=== PATIENT | female | born 2000 | race Caucasian/White ===

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

== ENCOUNTER 2019-03-02 21:52 | Emergency (ER) | payer OTHER ==
[2019-03-02 22:00] VITALS: BP 111/54
[2019-03-02] MEDS ORDERED: Ondansetron ODT TAB* 4 MG PO ONE ×2 (22:06→22:13)
[2019-03-02] MEDS ORDERED: Azithromycin TAB* 250 MG PO ONE (22:13)
--- NOTE | 2019-03-02 22:16 | UC ---
Throat Pain/Nasal Isaías HPI - HPI Summary HPI Summary: PATIENT WENT TO [facility] 10 DAYS AGO ON 02/20/19. WAS TREATED FOR STREP THROAT WITH AMOXICILLIN 500 MG ONCE DAILY FOR 7 DAYS. STATES SHE FELT BETTER BUT THEN YESTERDAY SYMPTOMS RETURNED. PATIENT HAS SUBJECTIVE FEVER, CHILLS, NAUSEA/VOMITING, SORE THROAT AND PAIN WITH SWALLOWING. - History of Current Complaint Chief Complaint: UCRespiratory Stated Complaint: sore throat Time Seen by Provider: 03/02/19 21:53 Hx Obtained From: Patient Hx Last Menstrual Period: 02/26/19 Onset/Duration: Gradual Onset, Lasting Days, Still Present Severity: Moderate Pain Intensity: 5 Pain Scale Used: 0-10 Numeric Cough: None Associated Signs & Symptoms: Positive: Fever - Allergies/Home Medications Allergies/Adverse Reactions: Allergies Allergy/AdvReac Type Severity Reaction Status Date / Time No Known Allergies Allergy Verified 03/02/19 22:00 Home Medications: Home Medications Dextroamphetamine/Amphetamine [Adderall 10 mg-] 10 mg PO DAILY 03/02/19 [ History Confirmed 03/02/19] PMH/Surg Hx/FS Hx/Imm Hx Psychological History: Anxiety, Depression - Surgical History Surgical History: None - Family History Known Family History: Positive: None - Social History Alcohol Use: Rare Substance Use Type: None Smoking Status (MU): Never Smoked Tobacco Review of Systems All Other Systems Reviewed And Are Negative: Yes Constitutional: Positive: Fever, Chills, Fatigue ENT: Positive: Sore Throat Respiratory: Positive: Negative Cardiovascular: Positive: Negative Gastrointestinal: Positive: Vomiting, Nausea Physical Exam Triage Information Reviewed: Yes Appearance: Well-Appearing, No Pain Distress, Well-Nourished Vital Signs: Initial Vital Signs Temp 97.9 F 03/02/19 21:55 Pulse 106 03/02/19 21:55 Resp 16 03/02/19 21:55 BP 111/54 03/02/19 21:55 Pulse Ox 100 03/02/19 21:55 Laboratory Tests 03/02/19 21:58 Group A Strep Rapid Positive A Eyes: Positive: Conjunctiva Clear ENT: Positive: Hearing grossly normal, Pharyngeal erythema, TMs normal, Tonsillar swelling, Tonsillar exudate Neck: Positive: Supple, Tenderness @ - SPFL CERVICAL LAD, Enlarged Nodes @ - SPFL CERVICAL LAD Respiratory Exam: Normal Cardiovascular: Positive: Tachycardia Abdomen Description: Positive: Soft Musculoskeletal: Positive: No Edema Neurological: Positive: Alert Psychological: Positive: Age Appropriate Behavior Skin: Negative: Rashes Throat Pain/Nasal Course/Dx - Course Course Of Treatment: IT SOUNDS LIKE PATIENT WAS UNDERTREATED FOR HER STREP THE FIRST TIME AROUND. WILL GIVE AZITH DAILY FOR 5 DAYS. IBUPROFEN NEEDED FOR DISCOMFORT. STAY WELL HYDRATED. ZOFRAN FOR NAUSEA. CONTACT INFORMATION FOR ENT PROVIDED PATIENT MAY BENEFIT FROM EVAL FOR TONSILLECTOMY. - Differential Dx/Diagnosis Provider Diagnosis: Strep pharyngitis Discharge - Sign-Out/Discharge Documenting (check all that apply): Patient Departure All imaging exams completed and their final reports reviewed: No Studies - Discharge Plan Condition: Stable Disposition: HOME Prescriptions: Azithromycin 500 mg PO DAILY #4 tab Patient Education Materials: Strep Throat (ED) Referrals: No Primary Care Phys,NOPCP [Primary Care Provider] - Additional Instructions: STREP POSITIVE. TAKE ANTIBIOTICS FOR THE FULL COURSE. OTC CHLORASEPTIC OR CEPACOL LOZENGES AND/OR IBUPROFEN FOR SORE THROAT NEEDED ONCE SYMPTOMS RESOLVED - NEW TOOTHBRUSH DO NOT SHARE FOOD, DRINK, UTENSILS CALL ENT FOR AN APPT TO DISCUSS ELECTIVE TONSILLECTOMY [place] [facility] AND [place] [address] [facility] [phone] - Billing Disposition and Condition Condition: STABLE Disposition: Home
== END 2019-03-02 22:24 | disposition home or self-care (01) ==
LOC: UCEAST 21:52
DX: J02.0 Streptococcal pharyngitis (principal); R50.9 Fever, unspecified; R11.2 Nausea with vomiting, unspecified; R00.0 Tachycardia, unspecified; F41.9 Anxiety disorder, unspecified; F32.9 Major depressive disorder, single episode, unspecified
CPT/HCPCS: 87651; 99212; A9270-GY; G0463